=== PATIENT | male | born 1965 | race African-American/Black ===

== ENCOUNTER 2019-06-02 07:55 | Day surgery (SDC) | payer OTHER ==
[2019-05-30 11:32] VITALS: BMI 36.2
--- NOTE | 2019-06-02 10:05 | OP ---
DATE OF PROCEDURE: 06/02/2019 PREOPERATIVE DIAGNOSIS: Average risk colon cancer screening. DESCRIPTION OF PROCEDURE: Informed consent was obtained from the patient. He was sedated with total intravenous anesthesia. The rectal exam was performed and was normal. The preparation quality was excellent. The colonoscope was advanced to the cecum, where the ileocecal valve and appendiceal orifice were clearly identified. The colonic mucosa was normal throughout. Retroflex views in the rectum revealed small internal hemorrhoids. IMPRESSION: Normal screening colonoscopy. RECOMMENDATIONS: Repeat colon cancer screening in 10 years. Job ID: [id number]
== END 2019-06-02 10:05 | disposition home or self-care (01) ==
LOC: SDC 07:55
PROVIDERS: ATTEND Internal Medicine Gastroenterology
PROC: 0DJD8ZZ Inspection of Lower Intestinal Tract, Via Natural or Artificial Opening Endoscopic (ICD-10-PCS; principal; 2019-06-02)
DX: Z12.11 Encounter for screening for malignant neoplasm of colon (principal); K64.8 Other hemorrhoids; F10.20 Alcohol dependence, uncomplicated; J44.9 Chronic obstructive pulmonary disease, unspecified; I10 Essential (primary) hypertension; Z87.891 Personal history of nicotine dependence; Z79.82 Long term (current) use of aspirin; Z79.899 Other long term (current) drug therapy

== ENCOUNTER 2021-09-19 11:21 | Outpatient (CLI) | payer OTHER ==
[2021-09-19 13:21] LABS: #Eosinphils 0.2 10x3/uL (0.0-0.5); #Monocytes 0.6 10x3/uL (0.0-1.1); %Basophils 0.6 % (0.0-2.0); %Eosinophils 2.4 % (0.0-6.0); %Lymphocytes 22.3 % (18.0-47.0); %Monocytes 9.3 % (0.0-10.0); %Neutrophils 64.9 % (40.0-75.0); Hemoglobin 14.3 g/dL (13.5-17.5); Mean Corpuscular HGB CONC 31.2 g/dL (32.0-36.0); Mean Corpuscular Hemoglobin 29.1 pg (27.0-33.0); Mean Corpuscular Volume 93.5 fl (81.2-95.1); Mean Platelet Volume 10.3 fl (7.4-10.4); Platelet Count 298 10x3/uL (150-450); Red Blood Cell (RBC) Count 4.91 10x6/uL (4.32-5.72); White Blood Cell (WBC) Count 6.2 10x3/uL (3.5-10.5)
[2021-09-19 13:41] LABS: Anion Gap 14 mmol/L (10-20); BUN (Urea Nitrogen) 10 mg/dL (8.4-25.7); Calc. Creatinine Clearance 0 mL/min (70-130); Calcium 9.3 mg/dL (7.8-10.44); Carbon Dioxide 23 mmol/L (22-29); Chloride 104 mmol/L (98-107); Glucose 107 mg/dL (70-105); Potassium 4.3 mmol/L (3.5-5.1); Sodium 137 mmol/L (136-145)
[2021-09-19 22:03] LABS: SARS-CoV-2 PCR by NAA Not Detected (NotDetected)
== END 2021-09-19 11:22 | disposition home or self-care (01) ==
LOC: LABBT 11:21
PROVIDERS: ATTEND Surgery
DX: Z01.818 Encounter for other preprocedural examination (principal); K60.3 Anal fistula; Z20.822 Contact with and (suspected) exposure to COVID-19
CPT/HCPCS: 80048; 85025; 93005; 93010; U0003; U0005

== ENCOUNTER 2021-09-22 08:21 | Day surgery (SDC) | payer OTHER ==
[2021-09-20 10:50] VITALS: BMI 38.2
[2021-09-22] MEDS ORDERED: ceFAZolin 2 GM/DEX 5% 100 ML BAG ONE (09:05)
[2021-09-22] MEDS ORDERED: Fentanyl 100 MCG/2 ML VIAL ONE ×2 (09:56)
[2021-09-22] MEDS ORDERED: Lidocaine 2% Jelly 5 ML TUBE ONE (10:00)
[2021-09-22] MEDS ORDERED: Lidocaine 1% w/Epinephrine 1:100K 20 ML VIAL ONE (10:00)
[2021-09-22] MEDS ORDERED: Bupivacaine 0.25% HCL 30 ML VIAL ONE (10:00)
[2021-09-22] MEDS ORDERED: Famotidine/PF 20 mg/2ml Vial ONE (10:01)
[2021-09-22] MEDS ORDERED: Dexamethasone 20 MG/5 ML VIAL ONE (10:12)
[2021-09-22] MEDS ORDERED: Ketorolac Tromethamine 30 MG/ML VIAL ONE (10:12)
[2021-09-22] MEDS ORDERED: PROPOFOL 200 MG/20 ML VIAL ONE (10:12)
[2021-09-22] MEDS ORDERED: Lidocaine 1% PF 5 ML VIAL ONE (10:12)
[2021-09-22] MEDS ORDERED: Ondansetron PF 4 MG/2 ML Vial ONE (10:12)
[2021-09-22] MEDS ORDERED: Albuterol Sulfate HFA (OR ONLY) ONE (10:12)
[2021-09-22] MEDS ORDERED: hydrALAZINE 20 MG/ML VIAL ONE (11:31)
== END 2021-09-22 12:45 | disposition home or self-care (01) ==
LOC: SDC 08:21
PROVIDERS: ATTEND Surgery
PROC: 0H88XZZ Division of Buttock Skin, External Approach (ICD-10-PCS; principal; 2021-09-22)
DX: K60.3 Anal fistula (principal); I10 Essential (primary) hypertension; E78.5 Hyperlipidemia, unspecified; F17.210 Nicotine dependence, cigarettes, uncomplicated; F10.10 Alcohol abuse, uncomplicated; Z79.82 Long term (current) use of aspirin; Z79.899 Other long term (current) drug therapy
CPT/HCPCS: J0360; J1100; J1885; J2405; J2704; J3010; S0020; S0028

== ENCOUNTER 2023-11-07 09:17 | Outpatient (CLI) | payer OTHER | END 2023-11-07 09:18 | disposition home or self-care (01) | LOC: BICULT 09:17 | PROVIDERS: ATTEND Nurse Practitioner Family | DX: L03.115 Cellulitis of right lower limb (principal) ==